=== PATIENT | male | born 1950 | race African-American/Black ===

== ENCOUNTER 2021-05-09 10:24 | Emergency (ER) | payer MEDICARE ==
[~2021-05-09] VITALS: Ht 182.9 cm; Wt 70.4 kg
--- NOTE | 2021-05-09 12:20 | RAD ---
Single AP view of the chest. Comparison: None. Indication: Weakness Findings: The heart is not enlarged. There is no pneumothorax or effusion. No air space or interstitial diseas e. There is subchondral sclerosis and osteophyte formation seen in the left glenohumeral joint. Impression: 1. No acute cardiopulmonary process. Electronically signed by: Julius Alonzo MD (05/09/2021 12:18 PM) [email or web address]
--- NOTE | 2021-05-09 12:23 | RAD ---
Axial CT images of the head were obtained without IV contrast. Comparison: None. Indication: Right arm numbness Findings: No mass effect or hemorrhage is seen. The ventricles are not enlarged or effaced. No midline shift is noted. There is no intra or extra axial fluid collection. No bony or soft tissue abnormality is seen. There is mild soft tissue thickening of the frontal and ethmoid sinuses. Impression: 1. No acute intracranial process seen on non- contrast head CT. 2. Mild ethmoid and frontal sinusitis Exposure: One or more of the following individualized dose reduction techniques were utilized for thi s examination: 1. Automated exposure control 2. Adjustment of the mA and/or kV according to patient size 3. Use of iterative reconstruction technique Electronically signed by: Julius Alonzo MD (05/09/2021 12:20 PM) [email or web address]
--- NOTE | 2021-05-09 12:47 | PHYS DOC ---
Past Medical History Additional Past Medical Histor: STAGE 4 PROSTATE CANCER WITH SURGICAL REMOVAL, Past Surgical History: Tonsillectomy Additional Past Surgical Histo: PROSTATE, L KNEE, TEETH REMOVED Smoking Status: Never Smoker Alcohol Use: Occasionally Social History Narrative: TAKES MARIJUANA FOR CANCER MEDICATION General Adult EDM: Chief Complaint: WEAKNESS/GENERALIZED HPI: HPI: Patient is a 71 year old male who presents with recurrent episodes of right arm paralysis. Patient states happened 3 times in the last month. Patient was seen by his PCP, Dr. Harris today who had him come to the emergency room to be evaluated. Patient's denying any paralysis or weakness at this time. Denies any other neuro symptoms. No visual changes, headache, chest pain, shortness of breath. Denies history of TIA or stroke. Last episode occurred a couple of days ago. 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 Patient reports that episode usually lasts about 10 to 30 minutes and then resolved. Patient has a history of prostate and throat cancer. Last treatment was last year. History of hypertension, diabetes. Fully vaccinated for COVID-19. Review of Systems: Review of Systems: ROS At least 10 ROS systems have been reviewed and are negative except as documented in the HPI. General: Negative except as outlined in HPI above. Skin: Negative except as outlined in HPI above. HEENT: Negative except as outlined in HPI above. Neck: Negative except as outlined in HPI above. Respiratory: Negative except as outlined in HPI above.. Cardiovascular: Negative except as outlined in HPI above. Abdomen: Negative except as outlined in HPI above. : Negative except as outlined in HPI above. Back/MSK: Negative except as outlined in HPI above. Neuro: Negative except as outlined in HPI above. Psych: Negative except as outlined in HPI above. Heart Score: C/O Chest Pain: No Risk Factors: Risk Factors: DM, Current or recent (<one month) smoker, HTN, HLP, family history of CAD, obesity. Risk Scores: Score 0 - 3: 2.5% MACE over next 6 weeks - Discharge Home Score 4 - 6: 20.3% MACE over next 6 weeks - Admit for Clinical Observation Score 7 - 10: 72.7% MACE over next 6 weeks - Early Invasive Strategies Allergies: Allergies: Allergies Coded Allergies Type Severity Reaction Last Updated Verified No Known Drug Allergies 1/4/22 No Physical Exam: PE: Constitutional: Well developed, well nourished, no acute distress, non-toxic appearance. [] HENT: Normocephalic, atraumatic, bilateral external ears normal, oropharynx moist, no oral exudates, nose normal. [] Eyes: PERRLA, EOMI, conjunctiva normal, no discharge. [] Neck: Normal range of motion, no tenderness, supple, no stridor. [] Cardiovascular:Heart rate regular rhythm, no murmur [] Lungs & Thorax: Bilateral breath sounds clear to auscultation [] Abdomen: Bowel sounds normal, soft, no tenderness, no masses, no pulsatile masses. [] Skin: Warm, dry, no erythema, no rash. [] Back: No tenderness, no CVA tenderness. [] Extremities: No tenderness, no cyanosis, no clubbing, ROM intact, no edema. [] Neurologic: Alert and oriented X 3, normal motor function, normal sensory function, no focal deficits noted. [] Psychologic: Affect normal, judgement normal, mood normal. [] Current Patient Data: Vital Signs: Vital Signs Date Time Temp Pulse Resp B/P (MAP) Pulse Ox O2 Delivery O2 Flow Rate FiO2 05/09/21 11:01 97.5 63 16 155/77 (103) 98 Room Air 97.5 EKG: EKG: [] Sinus rhythm. Heart rate [address] elevation or depression. Radiology/Procedures: Radiology/Procedures: []Axial CT images of the head were obtained without IV contrast. Comparison: None. Indication: Right arm numbness Findings: No mass effect or hemorrhage is seen. The ventricles are not enlarged or effaced. No midline shift is noted. There is no intra or extra axial fluid collection. No bony or soft tissue abnormality is seen. There is mild soft tissue thickening of the frontal and ethmoid sinuses. Impression: 1. No acute intracranial process seen on non- contrast head CT. 2. Mild ethmoid and frontal sinusitis Exposure: One or more of the following individualized dose reduction techniques were utilized for this examination: 1. Automated exposure control 2. Adjustment of the mA and/or kV according to patient size 3. Use of iterative reconstruction technique Electronically signed by: Julius Alonzo MD (05/09/2021 12:20 PM) [email or web address] Single AP view of the chest. Comparison: None. Indication: Weakness Findings: The heart is not enlarged. There is no pneumothorax or effusion. No air space or interstitial disease. There is subchondral sclerosis and osteophyte formation seen in the left glenohumeral joint. Impression: 1. No acute cardiopulmonary process. Electronically signed by: Julius Alonzo MD (05/09/2021 12:18 PM) [email or web address] Course & Med Decision Making: Course & Med Decision Making Pertinent Labs and Imaging studies reviewed. (See chart for details) [] 71-year-old male who presents with right arm paralysis a few days ago. Patient is denying any symptoms at this time. Work-up in ER consist of CT head, CBC, CMP, troponin, EKG, UA. Neuro exam is negative. Patient is hemodynamically stable. Denies pain. All labs unremarkable. CT head unremarkable. Consulted Dr. Farley who suggested patient be seen by PCP as outpatient for MRI, echo. Patient is appropriate to be discharged to home. Discussed return precautions in length with patient. Patient states that he understands discharge instructions. Patient will follow up with PCP for further work-up. Patient is hemodynamically stable and able to ambulate on his own at the time of disposition. Patient continues to deny any symptoms at the time of discharge. Dragon Disclaimer: Dragon Disclaimer: This electronic medical record was generated, in whole or in part, using a voice recognition dictation system. Departure Departure Impression: Primary Impression: Weakness of right arm Disposition: 01 HOME / SELF CARE / HOMELESS Condition: STABLE Referrals: UMANG LIMA MD (PCP) Patient Instructions: Weakness, [id number] Additional Instructions: You are seen in the emergency room for episodes of right arm paralysis. You are denying any complaints at this time. All of your labs were unremarkable. CT of your head was unremarkable as well. Please call your PCP and make a follow- up appointment in the next 24 hours for further work-up. Please return to the emergency room if you have any worsening symptoms or concerns such as numbness, weakness, chest pain. EMERGENCY DEPARTMENT GENERAL DISCHARGE INSTRUCTIONS Thank you for coming to [facility] Department (ED) today and trusting us with you care. We trust that you had a positive experience in our Emergency Department. If you wish to speak to the department management, you may call the Director at [phone]. YOUR FOLLOW UP INSTRUCTIONS ARE FOLLOWS: 1. Do you have a private Doctor? If you do not have a private doctor, please ask for a resource list of physicians or clinics that may be able to assist you with follow up care. 2. The Emergency Physicain has interpreted your x-rays. The X-Ray specialist will also review them. If there is a change in the findings, you will be notified in 48 hours when at all possible. 3. A lab test or culture has been done, your results will be reviewed and you will be notified if you need a change in treatment. ADDITIONAL INSTRUCTIONS AND INFORMATION: 1. Your care today has been supervised by a physician who is specially trained in emergency care. Many problems require more than one evaluation for a complete diagnosis and treatment. We recommend that you schedule your follow up appointment as recommended to ensure complete treatment of you illness or injury. If you are unable to obtain follow up care and continue to have a problem, or if your condition worsens, we recommend that you return to the ED. 2. We are not able to safely determine your condition over the phone nor are we able to give sound medical advice over the phone. For these safety reasons, if you call for medical advice we will ask you to come to the ED for further evaluation. 3. If you have any questions regarding these discharge instructions please call the ED at [phone]. SAFETY INFORMATION: In the interest of safety, wellness, and injury prevention; we encourage you to wear your sealbelt, if you smoke; quite smoking, and we encourage family to use a protective helmet for bicycling and other sporting events that present an increased risk for head injury. IF YOUR SYMPTOMS WORSEN OR NEW SYMPTOMS DEVELOP, OR YOU HAVE CONCERNS ABOUT YOUR CONDITION; OR IF YOUR CONDITION WORSENS WHILE YOU ARE WAITING FOR YOUR FOLLOW UP APPOINTMEN T; EITHER CONTACT YOUR PRIMARY CARE DOCTOR, THE PHYSICIAN WHOSE NAME AND NUMBER YOU WERE GIVEN, OR RETURN TO THE ED IMMEDIATELY. HEMA WEBBER APRN May 09, 2021 12:47
[2021-05-09 13:23] LABS: BASO % 1 % (0-3); EOS # 0.3 x10^3/uL (0.0-0.7); EOS % 6 % (0-3); HEMATOCRIT 36.8 % (39.0-53.0); HEMOGLOBIN 11.9 g/dL (13.0-17.5); LYMPH # 0.4 x10^3/uL (1.0-4.8); LYMPH % 8 % (24-48); MEAN CORPUSCULAR HEMOGLOBIN 30 pg (25-35); MEAN CORPUSCULAR HGB CONC 32 g/dL (31-37); MEAN CORPUSCULAR VOLUME 91 fL (79-100); MONO # 0.5 x10^3/uL (0.0-1.1); MONO % 10 % (0-9); NEUT # 3.5 x10^3/uL (1.8-7.7); NEUT % 75 % (31-73); PLATELET COUNT 477 x10^3/uL (140-400); RED BLOOD COUNT 4.04 x10^6/uL (4.30-5.70); RED CELL DISTRIBUTION WIDTH 13.6 % (11.5-14.5); WHITE BLOOD COUNT 4.6 x10^3/uL (4.0-11.0)
[2021-05-09 13:31] LABS: CALCIUM 8.6 mg/dL (8.5-10.1); CREATININE 0.9 mg/dL (0.7-1.3); GFR 100.4; POTASSIUM 4.1 mmol/L (3.5-5.1)
[2021-05-09 13:37] LABS: ALBUMIN 3.3 g/dL (3.4-5.0); ALBUMIN/GLOBULIN RATIO 0.9 (1.0-1.7); MAGNESIUM 1.9 mg/dL (1.8-2.4); TOTAL BILIRUBIN 0.3 mg/dL (0.2-1.0); TOTAL PROTEIN 6.9 g/dL (6.4-8.2)
[2021-05-09 13:40] LABS: BILIRUBIN,URINE NEGATIVE (NEG); CLARITY,URINE CLOUDY; COLOR,URINE YELLOW; NITRITE,URINE NEGATIVE (NEG); PROTEIN,URINE NEGATIVE (NEG-TRACE)
[2021-05-09 14:03] LABS: AMORPHOUS SEDIMENT,UR PRESENT /HPF; BACTERIA,URINE 0 /HPF (0-FEW); RBC,URINE 0 /HPF (0-2); WBC,URINE 0 /HPF (0-4)
[2021-05-09 14:49] VITALS: BP 160/72
== END 2021-05-09 14:46 | disposition home or self-care (01) ==
LOC: ER 10:24
DX: R53.1 Weakness (principal); I10 Essential (primary) hypertension; J32.1 Chronic frontal sinusitis; J32.2 Chronic ethmoidal sinusitis; E11.9 Type 2 diabetes mellitus without complications; Z86.73 Personal history of transient ischemic attack (TIA), and cerebral infarction without residual deficits
CPT/HCPCS: 36415; 70450; 71045; 80053; 81001; 83735; 84484; 85025; 99285-25